=== PATIENT | female | born 1980 | race Caucasian/White ===

== ENCOUNTER 2019-01-18 21:22 | Inpatient (IN) | payer OTHER ==
[~2019-01-18] VITALS: Ht 170.2 cm; Wt 99.0 kg
[~2019-01-18 21:22] MED LIST: FER300 PO; FIORICET1 TAB PO; GLU5 PO; HUMALOG MIX 75/10 ML SC; KAYEN PR; LEVEMIR100 U/M1 SC; LISINOPRIL30 MG PO; PAXIL40 MG PO; ZES10 PO
[2019-01-18 21:32] VITALS: Ht 170.2 cm; Wt 99.0 kg
--- NOTE | 2019-01-18 21:38 | NUR ---
PT BROUGHT TO ED BY [facility] WITH C/O BILATERAL FLANK PAIN X2 DAYS. PT STATES THAT SHE HAS A HX OF DIABETES WITH KIDNEY FAILURE. PT STATES THAT SHE OFTEN HAS ISSUES BUT HER SYMPTOMS STATED X2 DAYS AGO. PT STATES THAT SHE HAS BEEN EXPERIENCING ABDOMINAL PAIN WHICH IS TENDER TO PALPATION, AND N/V. PT DENIES DIARRHEA OR CONSTIPATION. PT STATES THAT SHE HAS HAD A TACTILE FEVER AT HOME WELL. PER MEDICS, 4MG ODT ZOFRAN AND 4MG IVP ZOFRAN ADMINISTERED FOR NAUSEA AND VOMITING. PT STATES THAT PAIN COMES AND GOES AND IS SHARP IN NATURE, PT CURRENTLY RATES PAIN AT 10/10. PT AOX4, RESP EVEN AND UNLABORED, MILD DISTRESS NOTED FROM PAIN.
[2019-01-18 21:57] LABS: PLATELET COUNT 162 x10^3mcL (130-400)
[2019-01-18 21:59] LABS: BASOPHIL % 0 % (0-2); RED CELL DISTRIBUTION WIDTH 15.1 % (11.5-14.5)
[2019-01-18 22:21] LABS: BILIRUBIN TOTAL 0.46 mg/dL (0.20-1.00); CALCIUM 8.5 mg/dL (8.5-10.1); CREATININE SERUM 3.9 mg/dL (0.6-1.0); POTASSIUM SERUM 4.4 mmol/L (3.5-5.1); TOTAL PROTEIN, SERUM 7.2 g/dL (6.4-8.2)
[2019-01-18 22:22] LABS: ALBUMIN 3.2 g/dL (3.4-5.0)
--- NOTE | 2019-01-18 22:31 | NUR ---
PT RESTING IN A POSITION OF COMFORT WITH EYES CLOSED, RESP EVEN AND UNLABORED, NO ACUTE DISTRESS NOTED. PT REMAINS ON MONITOR.
[2019-01-18 23:22] LABS: UA SPECIFIC GRAVITY 1.015 (1.005-1.035); microscopic required? YES; urine erythrocyte 3+ (NEGATIVE)
--- NOTE | 2019-01-18 23:43 | NUR ---
PT AWAKE ALERT AND ORIENTED. BREATHING EVEN UNLABORED.PT IN POSITION OF COMFORT. NS INFUSING. ST ON MONITOR. FAMILY MEMBER AT BEDSIDE. CONTINUE TO MONITOR.
--- NOTE | 2019-01-19 01:03 | NUR ---
PT RESTING COMFORTABLY WITH EYES CLOSED, RESP EVEN AND UNLABORED, NO ACUTE DISTRESS NOTED. PT REMAINS ON MONITOR.
--- NOTE | 2019-01-19 01:20 | NUR ---
UNABLE TO OBTAIN COMPLETE MEDICATION LIST.
[2019-01-19] MEDS ORDERED: LAMOTRIGINE100 M1 PO (01:22)
[2019-01-19] MEDS ORDERED: HYDROXYZINE HYD25 MG PO (01:22)
--- NOTE | 2019-01-19 01:50 | NUR ---
PT REPORT CALLED TO MANJULA MULLINS.
--- NOTE | 2019-01-19 01:55 | NUR ---
REIVED FROM ER,VIA [facility] BY NURSES.PUT IN ROOM 235 A ND MADE COMFORTABLE.TELE 8 ASSIGNED.BRIGETTE WILL ADMIT PATIENT.THANK YOU.
--- NOTE | 2019-01-19 02:02 | NUR ---
PT TRANSFERRED TO [facility]B BY [facility] BY MYSELF AND [facility] EMT. PT ON FULL CM FOR TRANSPORT. PT AOX4, RESP EVEN AND UNLABORED, NO ACUTE DISTRESS NOTED. PT AMBULATED FROM [facility] TO BED WITHOUT INCIDENT. PT ACCEPTED BY MANJULA MULLINS TO ASSUME PT CARE.
[2019-01-19 02:15] LABS: T3 TOTAL 0.76 ng/mL
[2019-01-19 02:32] VITALS: BP 106/53
--- NOTE | 2019-01-19 02:32 | NUR ---
NORCO GIVEN PO.SWALLOWS WELL.
--- NOTE | 2019-01-19 02:32 | NUR ---
IV SITE L INDEX FINGER,SHE DO NOT WANT THE SITE,CHANGE SITE SHE WANTS TO.
[2019-01-19 02:34] LABS: FREE T4 1.08 ng/dL (0.76-1.46); FREE THYROXINE INDEX 2.6 ug/dL (1.4-4.5); MAGNESIUM 1.8 mg/dL (1.8-2.4); PHOSPHOROUS 2.6 mg/dL (2.5-4.9)
--- NOTE | 2019-01-19 02:40 | NUR ---
RECIEVED PT FROM ER, PT ADMIT FOR PYELONEPHRITIS, PT IS A/O X4, VERBAL RESPONSIVE, ABLE TO TELL WHAT SHE NEEDS. LUNG SOUND CLEAR BILATERAL, NO COUGH, NO SOB, PT IS ON TELE 8, NSR, DENY ANY CHEST PAIN OR DISCOMFORT, BOWEL SOUND PRESENT ALL 4 QUADRANTS, NO DISTENTION, NO TENDER. PT C/O HAS BEEN N/V, C/O SHIRLEY FLANK PAIN 10/10 X 2 DAYS, PEDAL PULSE PRESENT BOTH FEET, NO EDEMA, IV AT RIGHT HAND, NO LEAKING, NO INFILRATION. ALL ADLS ASSIST, ALL NEED MET, CALL LIGHT IN REACH, WILL CONTINUE TO MONITOR.
[2019-01-19 05:59] VITALS: BP 102/50
--- NOTE | 2019-01-19 05:59 | NUR ---
I AND O MEASURED.PATIENT IVF NS AT 100 CC/ HOUR.BACK TO SLEEP.BLOOD SUGAR 284,GIVEN 9 UNITS REG INSULIN SLIDING SCALE.WILL ENDORSE TO NEXT SHIFT.
[2019-01-19 06:25] VITALS: BP 102/50
[2019-01-19 06:53] LABS: BASOPHIL % 0.2 % (0-2); PLATELET COUNT 143 x10^3mcL (130-400)
[2019-01-19 06:56] LABS: RED CELL DISTRIBUTION WIDTH 14.9 % (11.5-14.5)
--- NOTE | 2019-01-19 07:05 | NUR ---
RECEIVED PT FROM MEREDITH RN. PT AA/OX4. LAYING IN BED WITH BOTH EYES CLOSED. NO S/S OF ACUTE DISTRESS. NO SOB ON ROOM AIR. RR EVEN/UNLABORED. CHEST EXPANSION SYMMETRICAL. CALM/COOPERATIVE. BED IN LOW POSITION. CALL LIGHT WITHIN REACH. WILL CONTINUE TO MONITOR.
[2019-01-19 07:15] LABS: CALCIUM 7.5 mg/dL (8.5-10.1); CARBON DIOXIDE 19.3 mmol/L (21-32); POTASSIUM SERUM 4.6 mmol/L (3.5-5.1)
[2019-01-19 07:20] LABS: CREATININE SERUM 4.1 mg/dL (0.6-1.0)
--- NOTE | 2019-01-19 07:38 | NUR ---
CREA 4.1, INCREASED, REPORTED TO DR. ALEJO. PT HAS HX OF RENAL FAILURE. AWAITING FURTHER ORDERS. WILL CONT. TO MONITOR.
[2019-01-19 08:34] VITALS: BP 99/55
--- NOTE | 2019-01-19 09:31 | NUR ---
PT WEIGHT 221.9LBS, BEDSCALE. STRICT I/O IN PLACE. PT VERBALIZED UNDERSTANDING.
--- NOTE | 2019-01-19 12:57 | NUR ---
PT EATING LUNCH. AA/OX4. C/O FLANK BACK PAIN, RATES 5/10, ACHING, INTERMITTENT. WORSE WHILE LAYING IN BED. GIVEN PO PAIN MED SEE MAR. TEARFUL AFTER DISCUSSING POC W/ DR. ALMANZAR. NO S/S OF ACUTE DISTRESS. NO SOB ON ROOM AIR. IVF FLOWING. CALM/COOPERATIVE. URINE OUTPUT 750CC (VOID X1). CLEAR/YELLOW. BED IN LOW POSITION. CALL LIGHT WITHIN REACH. WILL CONTINUE TO MONITOR.
[2019-01-19 17:03] VITALS: BP 129/57
--- NOTE | 2019-01-19 18:18 | NUR ---
PT LAYING IN BED. AA/OX4. NO S/S OF ACUTE DISTRESS. DENIES PAIN AT THIS TIME. NO SOB ON ROOM AIR. NO CHEST PAIN. CALM/COOPERATIVE. IV WNL TO LFA, 20 GUAGE. PATENT AND FLUSHES WELL. IV SALINE LOCKED. NO ABD. PAIN. TOLERATING REGULAR DIET WELL. BED IN LOW POSITION. CALL LIGHT WITHIN REACH. WILL ENDORSE TO ONCOMING SHIFT.
--- NOTE | 2019-01-19 19:30 | NUR ---
PT RECIEVED FROM DAY NURSE, PT RESTING IN BED AT THIS TIME. DENIES PAIN OR DISCOMFORT. A/O X4, CALM AND COOPERATIVE. TELE 8, SR. DENIES CP, NV, DIZZINESS, OR PALPATATIONS. PALPABLE PULSES, NO EDEMA NOTED AT THIS TIME. BREATHING E/U ON RA, DENIES SOB. ABD SOFT AND ROUND, DENIES PAIN TO PALPATION. IV TO LFA, INTACT AND INFUSING. BED AT LOWEST POSITION. CALL LIGHT WITHIN REACH. WILL CONTINUE TO MONITOR.
[2019-01-19 19:34] VITALS: BP 124/69
--- NOTE | 2019-01-19 21:10 | NUR ---
PT COMPLAINING OF 7/10 PAIN. MEDICATED WITH PRN NORCO. WILL CONTINUE TO MONITOR.
--- NOTE | 2019-01-20 | NUR ---
PT RESTING IN BED AT TD AT THIS TIME. BREATHING E/U ON RA. NO S/S OF PAIN OR DISTRESS NOTED AT THIS TIME. WILL CONTINUE TO MONITOR.
--- NOTE | 2019-01-20 03:40 | NUR ---
PT COMPLAINING OF 6/10 GEBERALIZED PAIN AND NV. MEICATED WITH PRN NORCO AND ZOFRAN. WILL CONTINUE TO MONITOR.
[2019-01-20 03:44] VITALS: BP 143/87
[2019-01-20 06:46] LABS: MAGNESIUM 1.6 mg/dL (1.8-2.4); PHOSPHOROUS 3.4 mg/dL (2.5-4.9)
--- NOTE | 2019-01-20 07:42 | NUR ---
REPORT TAKEN FROM DRYWALL APPLICATOR NURSE, PATIENT RESTING AT THIS TIME AND DID NOT WAKE FOR REPORT. PATIENT CHEST RISE AND FALL OBSERVED, AND PATIENT WOKE AND DENIED PAIN. PATIENT REQUESTED TO REST AT THIS TIME, WILL COMPLETE ASSESSMENT LATER.
[2019-01-20 09:12] LABS: CALCIUM 7.2 mg/dL (8.5-10.1); CARBON DIOXIDE 18.6 mmol/L (21-32); CREATININE SERUM 3.7 mg/dL (0.6-1.0); POTASSIUM SERUM 4.5 mmol/L (3.5-5.1)
[2019-01-20] MEDS ORDERED: TYLENOL WITH CO1 TA2 PO (10:23)
[2019-01-20] MEDS ORDERED: KEFLEX500 M1 PO ×2 (10:23→10:31)
[2019-01-20] MEDS ORDERED: KEF500 PO (10:39)
[2019-01-20 11:13] VITALS: BP 143/87
--- NOTE | 2019-01-20 12:04 | NUR ---
PATIENT SIGNED DISCHARGE PAPER WORK AT THE BEDSIDE, IV DC'D FROM FROM LEFT FOREARM WITH CATH INTACT, PT TOLERATED WELL, TELE # 8 RETURNED TO STATION. SOFTWARE QUALITY AUTOMATION ENGINEER TO TAKE PT TO LOBBY TO BE DISCHARGED IN THE CARE OF HER .
== END 2019-01-20 12:09 | disposition home or self-care (01) | DRG 463 ==
LOC: ED 21:22 → DU 01-19 01:04
PROVIDERS: Emergency Medicine; Internal Medicine; ADMIT Family Medicine
DX: N10 Acute pyelonephritis (principal); N17.0 Acute kidney failure with tubular necrosis; E11.65 Type 2 diabetes mellitus with hyperglycemia; E11.22 Type 2 diabetes mellitus with diabetic chronic kidney disease; E44.1 Mild protein-calorie malnutrition; N18.4 Chronic kidney disease, stage 4 (severe); I12.9 Hypertensive chronic kidney disease with stage 1 through stage 4 chronic kidney disease, or unspecified chronic kidney disease; D63.8 Anemia in other chronic diseases classified elsewhere; F41.9 Anxiety disorder, unspecified; Z68.32 Body mass index [BMI] 32.0-32.9, adult; Z79.4 Long term (current) use of insulin; Z79.84 Long term (current) use of oral hypoglycemic drugs
CPT/HCPCS: 82962; 84439; G0378; J0696; J2405; J3010; J7030; J7060; Q0092

== ENCOUNTER 2019-02-10 13:58 | Emergency (ER) | payer OTHER ==
[~2019-02-10] VITALS: Ht 167.6 cm; Wt 94.3 kg
[~2019-02-10 13:58] MED LIST changes: +HYDROXYZINE HYD25 MG PO; +KEF500 PO; +KEFLEX500 M1 PO; +LAMOTRIGINE100 M1 PO; +TYLENOL WITH CO1 TA2 PO
[2019-02-10 14:04] VITALS: BP 129/74; Ht 167.6 cm; Wt 94.3 kg
== END 2019-02-10 14:41 | disposition home or self-care (01) ==
LOC: ED 13:58
DX: T46.4X5A Adverse effect of angiotensin-converting-enzyme inhibitors, initial encounter (principal); F31.9 Bipolar disorder, unspecified; E11.22 Type 2 diabetes mellitus with diabetic chronic kidney disease; N18.9 Chronic kidney disease, unspecified; Y92.89 Other specified places as the place of occurrence of the external cause